=== PATIENT | male | born 1965 | race Two or more races ===

== ENCOUNTER 2025-04-17 08:03 | Emergency (ER) | payer OTHER ==
[~2025-04-17] VITALS: Ht 182.9 cm; Wt 119.7 kg
[~2025-04-17 08:03] MED LIST: AVAPRO300 MG PO; GRALISE600 MG; IRO-PLEX LIQUI120 ML PO; LEVOXYL25 MCG; METFORMIN HCL500 M3; NORFLEX100MG PO; TRAMADOL HCL50 MG PO; ZANAFLEX2 MG PO; ZIPSOR25 MG; ZOCOR20 MG PO
[2025-04-17] MEDS ORDERED: MORPHINE SULFATE 4 MG/ML CARTRIDGE IV STA (08:39)
[2025-04-17] MEDS ORDERED: 0.9 % SODIUM CHLORIDE 1,000 ML IV SCH (08:45)
[2025-04-17 09:15] LABS: BASO % 0.3 % (0.1-1.2); EOS # 0.00 (0.04-0.54); EOS % 0.0 % (0.7-7.0); LYMPH # 0.71 (1.18-3.74); LYMPH % 3.2 % (19.3-53.1); MEAN PLATELET VOLUME 11.20 fl (9.4-12.4); MONO # 1.09 (0.24-0.82); MONO % 5.0 % (4.7-12.5); NEUT # 19.84 (1.56-6.13); NEUT % 90.0 % (34.0-71.1); RED CELL DISTRIBUTION WIDTH 16.8 % (11.6-14.4)
[2025-04-17 09:37] LABS: INR 1.23
[2025-04-17 10:02] LABS: URINE APPEARANCE Turbid; URINE BILIRRUBIN Small (NEGATIVE); URINE BLOOD Negative; URINE COLOR Dark Yellow; URINE GLUCOSE Negative (NEGATIVE); URINE KETONE Trace (NEGATIVE); URINE LEUKOCYTE Moderate; URINE NITRATE Negative; URINE PROTEIN 30 (NEGATIVE); URINE UROBILINOGEN 1.0 E.U./dl
[2025-04-17 10:33] LABS: TYPE CELLS SQUAMOUS; URINE BACTERIA 1798.7 uL (0.0-1933); URINE CAST 2.93 uL (0.0-1.40); URINE EPITHELIAL CELLS 148.6 uL (0.0-38.8); URINE RBC 35.1 uL (0.0-20.8); URINE WBC 119.5 uL (0.0-23.2)
[2025-04-17 10:45] LABS: ALT/SGPT 43.0 U/L (12-78); AST/SGOT 73.0 U/L (15-37); BILIRUBIN TOTAL 1.63 mg/dL (0.3-1.2); BUN CREA RATIO 20.0 (7.0-25.0); CREATININE SERUM 1.32 mg/dL (0.70-1.30); GFR 55.9; GLOBULINA 5.3 G/DL (2.4-3.5); GLUCOSE FASTING 156.0 mg/dL (65-100); OSMOLALITY SERUM 273.0 MOSM/KG (275-295)
[2025-04-17] MEDS ORDERED: KETOROLAC TROMETHAMINE 60 MG VIAL IM ONE (13:54)
[2025-04-17] MEDS ORDERED: KETOROLAC TROMETHAMINE 60 MG VIAL IM STA (14:02)
== END 2025-04-17 14:05 | disposition expired ==
LOC: ER 08:03
PROVIDERS: Physician Assistant Medical
DX: C18.9 Malignant neoplasm of colon, unspecified (principal); R10.9 Unspecified abdominal pain; N39.0 Urinary tract infection, site not specified; I10 Essential (primary) hypertension; E03.8 Other specified hypothyroidism; E11.9 Type 2 diabetes mellitus without complications; Z79.84 Long term (current) use of oral hypoglycemic drugs

== ENCOUNTER 2025-05-01 10:31 | Inpatient (IN) | payer OTHER ==
[~2025-05-01] VITALS: Ht 182.9 cm; Wt 102.1 kg
[2025-05-01] MEDS ORDERED: PEPCID AC10 MG PO (10:53)
[2025-05-01] MEDS ORDERED: ORPHENADRINE CI25 GM (10:53)
[2025-05-01] MEDS ORDERED: OXYCONTIN10 M1 PO (10:54)
--- NOTE | 2025-05-01 11:05 | NUR ---
SE RECIBE PACIENTE ALERTA Y ORIENTADO QUIEN REFIERE ES PACIENTE DE CANCER DE COLON Y TIENE DOLOR. SE MIDEN S/V Y SE REALIZA EKG, EL MISMO SE LE PRESENTA A DRA AVENDANO. SE UBICA.
[2025-05-01] MEDS ORDERED: KETOROLAC TROMETHAMINE 30 MG VIAL IV ONE (11:30)
[2025-05-01] MEDS ORDERED: PANTOPRAZOLE SODIUM 40 MG/VIAL VIAL IV PUSH ONE (11:30)
[2025-05-01] MEDS ORDERED: PIPERACILLIN/TAZOBACTAM SODIUM 3.375 GM VIAL IV ONE ×3 (11:30→22:36)
[2025-05-01] MEDS ORDERED: 0.9 % SODIUM CHLORIDE 1,000 ML IV SCH (11:30)
--- NOTE | 2025-05-01 11:48 | NUR ---
SE ORIENTA A PACIENTE SOBRE TRATAMIENTO MEDICO, REFIERE ENTENDER. SE COLECTAN MUESTRAS DE LABORATORIO Y SE CANALIZA A PACIENTE BAJO MEDIDAS ASEPTICAS. SE ADMINISTRAN MEDICAMENTOS LASHAE ORDEN MEDICA. SE ENTREGA ENVASE PARA U/A. SE NOTIFICAN ESTUDIOS PENDIENTES. SE CONECTA PACIENTE A MONITOR CARDIACO Y OXIMETRIA DE PULSO CONTINUA.
[2025-05-01 12:39] LABS: COVID-19 AG NEGATIVE (NEGATIVE)
[2025-05-01 13:01] LABS: ERYTHROCYTE SEDIMENTATION RATE > 130 mm/hr (0-20)
[2025-05-01 13:02] LABS: BASO % 1.2 % (0.1-1.2); EOS # 0.01 (0.04-0.54); EOS % 0.3 % (0.7-7.0); LYMPH # 0.40 (1.18-3.74); LYMPH % 12.4 % (19.3-53.1); MONO # 0.41 (0.24-0.82); NEUT # 2.35 (1.56-6.13); NEUT % 73.1 % (34.0-71.1); RED CELL DISTRIBUTION WIDTH 16.8 % (11.6-14.4)
[2025-05-01 13:08] LABS: ALT/SGPT 34.0 U/L (12-78); AST/SGOT 18.0 U/L (15-37); BILIRUBIN TOTAL 2.0 mg/dL (0.3-1.2); BUN CREA RATIO 28.0 (7.0-25.0); CREATININE SERUM 2.05 mg/dL (0.70-1.30); GFR 33.64; GLOBULINA 4.9 G/DL (2.4-3.5); GLUCOSE FASTING 157.0 mg/dL (65-100); OSMOLALITY SERUM 280.0 MOSM/KG (275-295)
[2025-05-01 13:13] LABS: MONO % 12.7 % (4.7-12.5)
[2025-05-01 14:03] LABS: BAND MAN 10.0 %; LYMPHOCYTE MAN 14.0 %; MONOCYTE MAN 9.0 %; NEUTROPHILS MAN 64.0 %
[2025-05-01 19:08] LABS: URINE APPEARANCE Cloudy; URINE BILIRRUBIN Small (NEGATIVE); URINE BLOOD Negative; URINE COLOR Dark Yellow; URINE GLUCOSE Negative (NEGATIVE); URINE KETONE Trace (NEGATIVE); URINE LEUKOCYTE Trace; URINE NITRATE Negative; URINE PROTEIN Trace (NEGATIVE); URINE UROBILINOGEN 1.0 E.U./dl
[2025-05-01 19:09] LABS: URINE BACTERIA 448.7 uL (0.0-1933); URINE CAST 6.01 uL (0.0-1.40); URINE EPITHELIAL CELLS 39.3 uL (0.0-38.8); URINE RBC 19.0 uL (0.0-20.8); URINE WBC 6.4 uL (0.0-23.2)
--- NOTE | 2025-05-01 20:55 | NUR ---
SE ORIENTA A PACIENTE SOBRE ORDEN DE TRANSFUSION DE 2 UNIDADES FRACCIONADAS DE PRBC, REFIERE ENTENDER Y ACEPTAR. SE CORROBORAN DATOS DEMOGRAFICOS DE PACIENTE. PACIENTE FIRMA CONSENTIMIENTO DE TRANSFUSION (SE ADJUNTA A RECORD). SE COLECTAN TUBOS SIRENA, SE COMPLETA REQUISICION SANGUINEA Y SE LLEVA LA MISMA A LABORATORIO DE INSTITUCION (COPIA EN RECORD DE PACIENTE).
[2025-05-01] MEDS ORDERED: ONDANSETRON HCL 4 MG in 0.9 % SODIUM CHLORIDE 50 ML IV PRN (21:30)
[2025-05-01] MEDS ORDERED: ACETAMINOPHEN 325 MG TABLET PO PRN (21:30)
[2025-05-01] MEDS ORDERED: MORPHINE SULFATE 2 MG/ML SYRINGE IV PRN (22:00)
[2025-05-01] MEDS ORDERED: NOREPINEPHRINE BITARTRATE 8 MG in DEXTROSE 5 % IN WATER 250 ML IV SCH (22:15)
[2025-05-02] VITALS (23 sets, daily range): BP systolic 82–153; BP diastolic 52–81; O2SAT 94–100
[2025-05-02] MEDS ORDERED: PIPERACILLIN/TAZOBACTAM SODIUM 3.375 GM in 0.9 % SODIUM CHLORIDE 100 ML IV SCH
[2025-05-02] MEDS ORDERED: ACETAMINOPHEN 500 MG GEL..CAP PO PRN (08:30)
[2025-05-02] MEDS ORDERED: PANTOPRAZOLE SODIUM 40 MG/VIAL VIAL IV SCH (09:00)
[2025-05-02] MEDS ORDERED: INSULIN LISPRO 1,000 UNIT/10 ML UNITS SUBCUTANEO PRN (16:15)
[2025-05-02] MEDS ORDERED: DEXTROSE 5 % AND 0.9 % NACL 1,000 ML IV SCH (16:15)
[2025-05-03] VITALS (12 sets, daily range): BP systolic 97–121; BP diastolic 59–77; O2SAT 96–100
[2025-05-03 14:19] LABS: BASO % 0.2 % (0.1-1.2); EOS # 0.03 (0.04-0.54); EOS % 0.5 % (0.7-7.0); LYMPH # 0.98 (1.18-3.74); LYMPH % 17.0 % (19.3-53.1); MONO # 0.71 (0.24-0.82); NEUT # 3.59 (1.56-6.13); NEUT % 62.0 % (34.0-71.1); RED CELL DISTRIBUTION WIDTH 16.4 % (11.6-14.4)
[2025-05-03 14:41] LABS: MONO % 12.3 % (4.7-12.5)
[2025-05-03 15:17] LABS: BUN CREA RATIO 38.0 (7.0-25.0); CREATININE SERUM 0.98 mg/dL (0.70-1.30); GFR 78.83; GLUCOSE FASTING 140.0 mg/dL (65-100); OSMOLALITY SERUM 292.0 MOSM/KG (275-295)
[2025-05-03 16:13] LABS: BAND MAN 2.0 %; LYMPHOCYTE MAN 18.0 %; METAMYELOCYTE 2.0 %; MONOCYTE MAN 13.0 %; MYELOCYTE 2.0 %
[2025-05-03 16:14] LABS: NEUTROPHILS MAN 61.0 %
[2025-05-03 16:30] LABS: INR 1.3
[2025-05-03 17:07] LABS: BILIRUBIN TOTAL 1.21 mg/dL (0.3-1.2); BILIRUBIN,CONJUGATED 0.92 mg/dL (0.0-0.2); LDH 105.0 U/L (87-241)
[2025-05-04 02:20] VITALS: BP 119/83; O2SAT 97
[2025-05-04 04:00] VITALS: BP 124/90; O2SAT 99
[2025-05-04 07:04] VITALS: BP 129/91; O2SAT 100
[2025-05-04] MEDS ORDERED: CHLORHEXIDINE GLUCONATE 120 ML BOTTLE TOP ONE (09:04)
[2025-05-04 09:15] LABS: BASO % 0.2 % (0.1-1.2); EOS # 0.03 (0.04-0.54); EOS % 0.5 % (0.7-7.0); LYMPH # 1.07 (1.18-3.74); LYMPH % 17.3 % (19.3-53.1); MEAN PLATELET VOLUME 12.30 fl (9.4-12.4); MONO # 0.73 (0.24-0.82); MONO % 11.8 % (4.7-12.5); NEUT # 3.67 (1.56-6.13); NEUT % 59.2 % (34.0-71.1); RED CELL DISTRIBUTION WIDTH 16.3 % (11.6-14.4)
[2025-05-04] MEDS ORDERED: DIATRIZOATE MEGLUMINE, SODIUM 30 ML BOTTLE PO NR (09:15)
[2025-05-04 09:57] LABS: BAND MAN 11.0 %; EOSINOPHIL MAN 2.0 %; LYMPHOCYTE MAN 24.0 %; METAMYELOCYTE 4.0 %; MONOCYTE MAN 9.0 %; NEUTROPHILS MAN 50.0 %
[2025-05-04 12:20] VITALS: BP 121/88; O2SAT 97
[2025-05-04] MEDS ORDERED: HALOPERIDOL LACTATE 5 MG/ML AMPUL ONE (13:10)
[2025-05-04] MEDS ORDERED: HALOPERIDOL LACTATE 5 MG/ML AMPUL IM NR (14:00)
[2025-05-04] MEDS ORDERED: fentaNYL CITRATE 50 MCG/ML AMPUL IV PUSH ONE (18:45)
[2025-05-04 20:45] VITALS: BP 124/85; O2SAT 100
[2025-05-04 23:23] VITALS: BP 105/78; O2SAT 99
[2025-05-05 04:22] VITALS: O2SAT 95
[2025-05-05 08:00] VITALS: BP 129/87; O2SAT 97
[2025-05-05] MEDS ORDERED: MORPHINE SULFATE 4 MG/ML CARTRIDGE IV PRN (11:00)
[2025-05-05 11:58] VITALS: BP 120/93; O2SAT 98
[2025-05-05 15:27] LABS: BUN CREA RATIO 23.0 (7.0-25.0); CHOL HDL RATIO 4.6 (0-5.0); CREATININE SERUM 0.93 mg/dL (0.70-1.30); GFR 83.74; GLUCOSE FASTING 116.0 mg/dL (65-100); HDL 19.0 mg/dl (40-60); LDL 44.0 mg/dl (0-130); OSMOLALITY SERUM 296.0 MOSM/KG (275-295); VLDL 24.0 (0-39)
[2025-05-05 15:33] VITALS: BP 126/82; O2SAT 98
[2025-05-05] MEDS ORDERED: AA 5 %/CALCIUM/LYTES/DEXT 20 % 2,000 ML CENTRAL SCH (17:00)
[2025-05-05] MEDS ORDERED: FAT EMULSIONS 250 ML IV SCH (21:00)
[2025-05-05 21:41] VITALS: BP 127/93; O2SAT 98
[2025-05-05 23:18] VITALS: BP 116/81; O2SAT 97
[2025-05-06 04:01] VITALS: BP 148/86; O2SAT 100
[2025-05-06 06:57] VITALS: BP 127/91; O2SAT 97
[2025-05-06] MEDS ORDERED: MEROPENEM 500 MG/VIAL VIAL IV STA (08:20)
[2025-05-06] MEDS ORDERED: MEROPENEM 500 MG/VIAL VIAL IV SCH (08:21)
[2025-05-06 12:02] VITALS: BP 120/88; O2SAT 99
[2025-05-06 15:30] VITALS: BP 131/87; O2SAT 98
[2025-05-07 01:59] VITALS: BP 146/90; O2SAT 97
[2025-05-07 06:29] LABS: BASO % 0.4 % (0.1-1.2); EOS # 0.01 (0.04-0.54); EOS % 0.1 % (0.7-7.0); LYMPH # 1.22 (1.18-3.74); LYMPH % 16.9 % (19.3-53.1); MEAN PLATELET VOLUME 10.90 fl (9.4-12.4); MONO # 0.61 (0.24-0.82); MONO % 8.4 % (4.7-12.5); NEUT # 4.42 (1.56-6.13); NEUT % 61.3 % (34.0-71.1); RED CELL DISTRIBUTION WIDTH 17.4 % (11.6-14.4)
[2025-05-07 06:54] LABS: ALT/SGPT 21.0 U/L (12-78); AST/SGOT 27.0 U/L (15-37); BILIRUBIN TOTAL 0.6 mg/dL (0.3-1.2); BUN CREA RATIO 18.0 (7.0-25.0); CREATININE SERUM 0.83 mg/dL (0.70-1.30); GFR 95.49; GLOBULINA 4.2 G/DL (2.4-3.5); GLUCOSE FASTING 194.0 mg/dL (65-100); OSMOLALITY SERUM 297.0 MOSM/KG (275-295)
[2025-05-07 08:57] LABS: BAND MAN 5.0 %; LYMPHOCYTE MAN 15.0 %; MONOCYTE MAN 4.0 %; NEUTROPHILS MAN 66.0 %
[2025-05-07 08:58] LABS: METAMYELOCYTE 7.0 %
[2025-05-07] MEDS ORDERED: DEXTROSE 5 %-0.45 % SOD CHLORD 1,000 ML IV SCH (09:00)
[2025-05-07 09:33] VITALS: BP 149/87; O2SAT 96
[2025-05-07 17:59] VITALS: BP 135/80
[2025-05-08 03:30] VITALS: BP 137/79; O2SAT 97
[2025-05-08] MEDS ORDERED: ONDANSETRON HCL 4 MG in 0.9 % SODIUM CHLORIDE 50 ML IV PRN (05:45)
[2025-05-08] MEDS ORDERED: MORPHINE SULFATE 4 MG/ML CARTRIDGE IV PRN (05:45)
[2025-05-08 08:30] VITALS: BP 144/97; O2SAT 95
[2025-05-08 18:46] VITALS: BP 149/96
[2025-05-09 04:29] VITALS: BP 135/84; O2SAT 97
[2025-05-09 08:13] LABS: BASO % 0.4 % (0.1-1.2); EOS # 0.01 (0.04-0.54); EOS % 0.1 % (0.7-7.0); LYMPH # 1.43 (1.18-3.74); LYMPH % 17.7 % (19.3-53.1); MEAN PLATELET VOLUME 11.70 fl (9.4-12.4); MONO # 0.60 (0.24-0.82); MONO % 7.4 % (4.7-12.5); NEUT # 5.79 (1.56-6.13); NEUT % 71.6 % (34.0-71.1); RED CELL DISTRIBUTION WIDTH 17.9 % (11.6-14.4)
[2025-05-09 08:51] VITALS: BP 135/85; O2SAT 95
[2025-05-09 08:51] LABS: ALT/SGPT 23.0 U/L (12-78); AST/SGOT 43.0 U/L (15-37); BILIRUBIN TOTAL 0.84 mg/dL (0.3-1.2); BUN CREA RATIO 12.0 (7.0-25.0); CREATININE SERUM 1.07 mg/dL (0.70-1.30); GFR 71.23; GLOBULINA 4.2 G/DL (2.4-3.5); GLUCOSE FASTING 110.0 mg/dL (65-100); OSMOLALITY SERUM 286.0 MOSM/KG (275-295)
[2025-05-09 18:05] VITALS: BP 144/95
[2025-05-10 02:50] VITALS: BP 132/88; O2SAT 96
[2025-05-10] MEDS ORDERED: DIATRIZOATE MEGLUMINE, SODIUM 30 ML BOTTLE PO NR (09:00)
[2025-05-10 09:11] VITALS: BP 136/99; O2SAT 97
[2025-05-10] MEDS ORDERED: MORPHINE SULFATE 4 MG/ML CARTRIDGE IV PRN (15:00)
[2025-05-10 20:50] VITALS: BP 152/102; O2SAT 98
[2025-05-11 01:03] VITALS: BP 135/90; O2SAT 98
[2025-05-11 10:05] VITALS: BP 128/78; O2SAT 96
[2025-05-11 18:56] VITALS: BP 143/85; O2SAT 97
[2025-05-12 03:27] VITALS: BP 113/72; O2SAT 95
[2025-05-12 06:30] LABS: BASO % 0.6 % (0.1-1.2); EOS # 0.01 (0.04-0.54); EOS % 0.1 % (0.7-7.0); LYMPH # 1.50 (1.18-3.74); LYMPH % 20.7 % (19.3-53.1); MEAN PLATELET VOLUME 11.60 fl (9.4-12.4); MONO # 0.60 (0.24-0.82); MONO % 8.3 % (4.7-12.5); NEUT # 5.05 (1.56-6.13); NEUT % 69.6 % (34.0-71.1); RED CELL DISTRIBUTION WIDTH 17.7 % (11.6-14.4)
[2025-05-12 06:46] LABS: ALT/SGPT 20.0 U/L (12-78); AST/SGOT 45.0 U/L (15-37); BILIRUBIN TOTAL 0.92 mg/dL (0.3-1.2); BUN CREA RATIO 10.0 (7.0-25.0); CREATININE SERUM 1.18 mg/dL (0.70-1.30); GFR 63.63; GLOBULINA 4.3 G/DL (2.4-3.5); GLUCOSE FASTING 79.0 mg/dL (65-100); OSMOLALITY SERUM 280.0 MOSM/KG (275-295)
[2025-05-12] MEDS ORDERED: FAMOTIDINE/PF 20 MG/2 ML VIAL IV STA (07:33)
[2025-05-12 10:40] VITALS: BP 117/83; O2SAT 98
[2025-05-12 20:10] VITALS: BP 126/85; O2SAT 96
[2025-05-12] MEDS ORDERED: FAMOTIDINE/PF 20 MG/2 ML VIAL IV SCH (21:00)
[2025-05-13 03:14] VITALS: BP 134/89; O2SAT 96
[2025-05-13 10:10] VITALS: BP 136/70; O2SAT 99
[2025-05-13 17:27] VITALS: BP 123/79; O2SAT 98
[2025-05-14 02:57] VITALS: BP 108/72; O2SAT 96
[2025-05-14 05:53] LABS: BASO % 1.0 % (0.1-1.2); EOS # 0.00 (0.04-0.54); EOS % 0.0 % (0.7-7.0); LYMPH # 1.46 (1.18-3.74); LYMPH % 28.7 % (19.3-53.1); MEAN PLATELET VOLUME 10.50 fl (9.4-12.4); MONO # 0.51 (0.24-0.82); MONO % 10.0 % (4.7-12.5); NEUT # 3.04 (1.56-6.13); NEUT % 59.9 % (34.0-71.1); RED CELL DISTRIBUTION WIDTH 17.4 % (11.6-14.4)
[2025-05-14 06:40] LABS: ALT/SGPT 25.0 U/L (12-78); AST/SGOT 53.0 U/L (15-37); BILIRUBIN TOTAL 0.61 mg/dL (0.3-1.2); BUN CREA RATIO 10.0 (7.0-25.0); CREATININE SERUM 0.82 mg/dL (0.70-1.30); GFR 96.84; GLOBULINA 4.2 G/DL (2.4-3.5); GLUCOSE FASTING 95.0 mg/dL (65-100); OSMOLALITY SERUM 283.0 MOSM/KG (275-295)
[2025-05-14 08:26] VITALS: BP 127/76; O2SAT 98
[2025-05-14] MEDS ORDERED: POTASSIUM BICARBONATE/CIT AC 25 MEQ TABLET.EFF PO SCH (09:00)
[2025-05-14 20:21] VITALS: BP 130/80; O2SAT 96
[2025-05-15 03:20] VITALS: BP 117/75; O2SAT 95
[2025-05-15 08:59] VITALS: BP 118/80; O2SAT 98
[2025-05-15 16:17] LABS: BASO % 0.9 % (0.1-1.2); EOS # 0.00 (0.04-0.54); EOS % 0.0 % (0.7-7.0); LYMPH # 1.08 (1.18-3.74); LYMPH % 20.0 % (19.3-53.1); MEAN PLATELET VOLUME 11.90 fl (9.4-12.4); MONO # 0.40 (0.24-0.82); MONO % 7.4 % (4.7-12.5); NEUT # 3.84 (1.56-6.13); NEUT % 71.3 % (34.0-71.1); RED CELL DISTRIBUTION WIDTH 18.2 % (11.6-14.4)
[2025-05-15 20:20] VITALS: BP 135/89
[2025-05-16 02:09] VITALS: BP 129/89; O2SAT 96
[2025-05-16] MEDS ORDERED: MORPHINE SULFATE 4 MG/ML CARTRIDGE IV PRN (04:00)
[2025-05-16] MEDS ORDERED: DIATRIZOATE MEGLUMINE, SODIUM 30 ML BOTTLE PO STA (08:12)
[2025-05-16 09:15] VITALS: BP 112/71; O2SAT 97
[2025-05-16] MEDS ORDERED: ORPHENADRINE CITRATE 30 MG/ML AMPUL IV PRN (09:45)
[2025-05-16 11:15] LABS: BASO % 1.1 % (0.1-1.2); EOS # 0.00 (0.04-0.54); EOS % 0.0 % (0.7-7.0); LYMPH # 1.45 (1.18-3.74); LYMPH % 23.6 % (19.3-53.1); MEAN PLATELET VOLUME 10.70 fl (9.4-12.4); MONO # 0.45 (0.24-0.82); MONO % 7.3 % (4.7-12.5); NEUT # 4.15 (1.56-6.13); NEUT % 67.5 % (34.0-71.1); RED CELL DISTRIBUTION WIDTH 17.9 % (11.6-14.4)
[2025-05-16 17:26] VITALS: BP 136/94; O2SAT 20
[2025-05-17 01:51] VITALS: BP 135/85; O2SAT 97
[2025-05-17 07:25] LABS: BUN CREA RATIO 9.0 (7.0-25.0); CREATININE SERUM 0.64 mg/dL (0.70-1.30); GFR 128.9; GLUCOSE FASTING 78.0 mg/dL (65-100); OSMOLALITY SERUM 281.0 MOSM/KG (275-295)
[2025-05-17 10:10] VITALS: BP 128/90; O2SAT 97
[2025-05-17 17:08] VITALS: BP 135/86; O2SAT 100
[2025-05-18 01:40] VITALS: BP 101/66; O2SAT 96
[2025-05-18 09:40] VITALS: BP 127/89; O2SAT 98
[2025-05-18 21:02] VITALS: BP 132/85; O2SAT 97
[2025-05-19 02:59] VITALS: BP 119/76; O2SAT 96
[2025-05-19 10:26] VITALS: BP 136/90; O2SAT 96
[2025-05-19] MEDS ORDERED: CLONAZEPAM 0.5 MG TABLET PO SCH (17:00)
[2025-05-19 17:56] VITALS: BP 140/85; O2SAT 98
[2025-05-20 02:40] VITALS: BP 97/69; O2SAT 97
[2025-05-20 11:00] VITALS: BP 141/101; O2SAT 97
[2025-05-20 13:10] LABS: BASO % 0.9 % (0.1-1.2); EOS # 0.02 (0.04-0.54); EOS % 0.3 % (0.7-7.0); LYMPH # 1.32 (1.18-3.74); LYMPH % 19.9 % (19.3-53.1); MEAN PLATELET VOLUME 11.40 fl (9.4-12.4); MONO # 0.47 (0.24-0.82); MONO % 7.1 % (4.7-12.5); NEUT # 4.73 (1.56-6.13); NEUT % 71.5 % (34.0-71.1); RED CELL DISTRIBUTION WIDTH 18.1 % (11.6-14.4)
[2025-05-20 13:59] LABS: ALT/SGPT 65.0 U/L (12-78); AST/SGOT 107.0 U/L (15-37); BILIRUBIN TOTAL 1.01 mg/dL (0.3-1.2); BUN CREA RATIO 13.0 (7.0-25.0); CREATININE SERUM 0.78 mg/dL (0.70-1.30); GFR 102.59; GLOBULINA 4.9 G/DL (2.4-3.5); GLUCOSE FASTING 110.0 mg/dL (65-100); OSMOLALITY SERUM 285.0 MOSM/KG (275-295)
[2025-05-20 17:27] VITALS: BP 115/82; O2SAT 96
[2025-05-21 02:09] VITALS: BP 109/70; O2SAT 96
[2025-05-21 09:28] VITALS: BP 102/83; O2SAT 97
[2025-05-21 19:40] VITALS: BP 130/80; O2SAT 97
[2025-05-22 02:58] VITALS: BP 105/64; O2SAT 98
[2025-05-22 09:18] VITALS: BP 108/68; O2SAT 98
[2025-05-22 17:45] VITALS: BP 151/97; O2SAT 96
[2025-05-23 01:29] VITALS: BP 129/88; O2SAT 97
[2025-05-23 08:56] VITALS: BP 119/66; O2SAT 98
[2025-05-23 18:52] VITALS: BP 143/90; O2SAT 96
[2025-05-24 03:51] VITALS: BP 105/66; O2SAT 97
[2025-05-24 06:20] LABS: BASO % 0.9 % (0.1-1.2); EOS # 0.11 (0.04-0.54); EOS % 2.5 % (0.7-7.0); LYMPH # 1.35 (1.18-3.74); LYMPH % 30.8 % (19.3-53.1); MEAN PLATELET VOLUME 10.90 fl (9.4-12.4); MONO # 0.44 (0.24-0.82); MONO % 10.0 % (4.7-12.5); NEUT # 2.42 (1.56-6.13); NEUT % 55.3 % (34.0-71.1); RED CELL DISTRIBUTION WIDTH 18.0 % (11.6-14.4)
[2025-05-24 06:47] LABS: BUN CREA RATIO 12.0 (7.0-25.0); CREATININE SERUM 0.74 mg/dL (0.70-1.30); GFR 109.02; GLUCOSE FASTING 89.0 mg/dL (65-100); OSMOLALITY SERUM 287.0 MOSM/KG (275-295)
[2025-05-24 10:07] VITALS: BP 143/84; O2SAT 97
[2025-05-24 17:55] VITALS: BP 147/88; O2SAT 97
[2025-05-25 03:44] VITALS: BP 110/65; O2SAT 97
[2025-05-25 06:19] LABS: BASO % 1.0 % (0.1-1.2); EOS # 0.14 (0.04-0.54); EOS % 2.9 % (0.7-7.0); LYMPH # 1.45 (1.18-3.74); LYMPH % 30.4 % (19.3-53.1); MEAN PLATELET VOLUME 11.40 fl (9.4-12.4); MONO # 0.43 (0.24-0.82); MONO % 9.0 % (4.7-12.5); NEUT # 2.68 (1.56-6.13); NEUT % 56.3 % (34.0-71.1); RED CELL DISTRIBUTION WIDTH 17.5 % (11.6-14.4)
[2025-05-25 09:49] VITALS: BP 143/96; O2SAT 97
[2025-05-25 17:44] VITALS: BP 124/75
[2025-05-26 03:13] VITALS: BP 106/66; O2SAT 97
[2025-05-26 06:20] LABS: BASO % 1.0 % (0.1-1.2); EOS # 0.17 (0.04-0.54); EOS % 3.5 % (0.7-7.0); LYMPH # 1.34 (1.18-3.74); LYMPH % 27.3 % (19.3-53.1); MEAN PLATELET VOLUME 11.60 fl (9.4-12.4); MONO # 0.38 (0.24-0.82); MONO % 7.8 % (4.7-12.5); NEUT # 2.95 (1.56-6.13); NEUT % 60.2 % (34.0-71.1); RED CELL DISTRIBUTION WIDTH 17.8 % (11.6-14.4)
[2025-05-26 06:43] LABS: ALT/SGPT 65.0 U/L (12-78); AST/SGOT 96.0 U/L (15-37); BILIRUBIN TOTAL 0.75 mg/dL (0.3-1.2); BUN CREA RATIO 16.0 (7.0-25.0); CREATININE SERUM 0.67 mg/dL (0.70-1.30); GFR 122.26; GLOBULINA 4.1 G/DL (2.4-3.5); GLUCOSE FASTING 86.0 mg/dL (65-100); OSMOLALITY SERUM 286.0 MOSM/KG (275-295)
[2025-05-26 08:40] VITALS: BP 109/67; O2SAT 96
[2025-05-26 18:53] VITALS: BP 151/85; O2SAT 100
[2025-05-27 01:17] VITALS: BP 106/67; O2SAT 97
[2025-05-27 09:06] VITALS: BP 112/72; O2SAT 96
[2025-05-27] MEDS ORDERED: DIATRIZOATE MEGLUMINE, SODIUM 30 ML BOTTLE PO NR (11:00)
[2025-05-27] MEDS ORDERED: MEROPENEM 500 MG/VIAL VIAL IV SCH (12:00)
[2025-05-27 18:00] VITALS: BP 152/100; O2SAT 98
[2025-05-28 01:14] VITALS: BP 112/66; O2SAT 99
[2025-05-28 06:33] LABS: BASO % 0.8 % (0.1-1.2); EOS # 0.11 (0.04-0.54); EOS % 2.8 % (0.7-7.0); LYMPH # 1.11 (1.18-3.74); LYMPH % 28.2 % (19.3-53.1); MEAN PLATELET VOLUME 10.90 fl (9.4-12.4); MONO # 0.39 (0.24-0.82); MONO % 9.9 % (4.7-12.5); NEUT # 2.28 (1.56-6.13); NEUT % 58.0 % (34.0-71.1); RED CELL DISTRIBUTION WIDTH 18.2 % (11.6-14.4)
[2025-05-28 09:27] VITALS: BP 132/87; O2SAT 99
[2025-05-28 17:52] VITALS: BP 128/73
[2025-05-29 03:26] VITALS: BP 105/67; O2SAT 97
[2025-05-29 08:58] VITALS: BP 111/69; O2SAT 98
[2025-05-29 18:25] VITALS: BP 120/78
[2025-05-30 02:44] VITALS: BP 108/69; O2SAT 97
[2025-05-30 08:49] VITALS: BP 128/83; O2SAT 97
[2025-05-30 18:11] VITALS: BP 131/83
[2025-05-31 02:12] VITALS: BP 102/62; O2SAT 96
[2025-05-31 08:57] VITALS: BP 136/94; O2SAT 98
[2025-05-31 21:10] VITALS: BP 134/80
[2025-06-01 03:49] VITALS: BP 117/74; O2SAT 98
[2025-06-01 08:00] VITALS: BP 150/90; O2SAT 95
[2025-06-01 19:06] VITALS: BP 138/88; O2SAT 97
[2025-06-01 20:49] LABS: BASO % 0.8 % (0.1-1.2); EOS # 0.14 (0.04-0.54); EOS % 2.6 % (0.7-7.0); LYMPH # 1.15 (1.18-3.74); LYMPH % 21.6 % (19.3-53.1); MEAN PLATELET VOLUME 10.40 fl (9.4-12.4); MONO # 0.36 (0.24-0.82); MONO % 6.8 % (4.7-12.5); NEUT # 3.63 (1.56-6.13); NEUT % 68.0 % (34.0-71.1); RED CELL DISTRIBUTION WIDTH 17.2 % (11.6-14.4)
[2025-06-01] MEDS ORDERED: CLOTRIMAZOLE 30 GM TUBE TOP SCH (21:37)
[2025-06-02 02:30] VITALS: BP 120/72; O2SAT 97
[2025-06-02 08:00] VITALS: BP 146/83; O2SAT 96
[2025-06-02 18:02] VITALS: BP 146/84
[2025-06-02 18:29] VITALS: BP 137/82
[2025-06-03 02:54] VITALS: BP 129/78; O2SAT 95
[2025-06-03] MEDS ORDERED: IPRATROPIUM BROMIDE 0.5 MG/2.5 ML AMPUL.NEB IH SCH (09:00)
[2025-06-03] MEDS ORDERED: GUAIFENESIN 200 MG/10 ML BLIST.PACK PO SCH (09:00)
[2025-06-03 09:07] VITALS: BP 156/111; O2SAT 97
[2025-06-03 11:44] LABS: BASO % 0.4 % (0.1-1.2); EOS # 0.01 (0.04-0.54); EOS % 0.1 % (0.7-7.0); LYMPH # 0.92 (1.18-3.74); LYMPH % 13.1 % (19.3-53.1); MEAN PLATELET VOLUME 10.80 fl (9.4-12.4); MONO # 0.44 (0.24-0.82); MONO % 6.3 % (4.7-12.5); NEUT # 5.60 (1.56-6.13); NEUT % 79.8 % (34.0-71.1); RED CELL DISTRIBUTION WIDTH 17.2 % (11.6-14.4)
[2025-06-03 12:19] LABS: BAND MAN 1.0 %; LYMPHOCYTE MAN 7.0 %; MONOCYTE MAN 2.0 %; NEUTROPHILS MAN 86.0 %
[2025-06-03 12:28] LABS: ALT/SGPT 66.0 U/L (12-78); AST/SGOT 96.0 U/L (15-37); BILIRUBIN TOTAL 2.36 mg/dL (0.3-1.2); BUN CREA RATIO 12.0 (7.0-25.0); CREATININE SERUM 0.95 mg/dL (0.70-1.30); GFR 81.71; GLOBULINA 5.6 G/DL (2.4-3.5); GLUCOSE FASTING 136.0 mg/dL (65-100); OSMOLALITY SERUM 275.0 MOSM/KG (275-295)
[2025-06-03 12:45] LABS: COVID-19 AG NEGATIVE (NEGATIVE)
[2025-06-03 18:20] VITALS: BP 133/82
[2025-06-04 02:43] VITALS: BP 114/71; O2SAT 96
[2025-06-04 08:51] VITALS: BP 146/100; O2SAT 96
[2025-06-04 18:55] VITALS: BP 150/85; O2SAT 97
[2025-06-05 02:44] VITALS: BP 137/86; O2SAT 100
[2025-06-05 09:33] VITALS: BP 120/77; O2SAT 96
[2025-06-05 17:55] VITALS: BP 147/92; O2SAT 97
[2025-06-06 02:21] VITALS: BP 139/88; O2SAT 97
[2025-06-06 09:27] VITALS: BP 122/72; O2SAT 96
[2025-06-06 18:20] VITALS: BP 153/85; O2SAT 96
[2025-06-07 03:23] VITALS: BP 135/85; O2SAT 97
[2025-06-07 11:27] VITALS: BP 142/96; O2SAT 97
[2025-06-07 14:54] LABS: ERYTHROCYTE SEDIMENTATION RATE 53 mm/hr (0-20)
[2025-06-07 14:58] LABS: BASO % 0.3 % (0.1-1.2); EOS # 0.13 (0.04-0.54); EOS % 2.1 % (0.7-7.0); LYMPH # 1.35 (1.18-3.74); LYMPH % 21.8 % (19.3-53.1); MEAN PLATELET VOLUME 10.50 fl (9.4-12.4); MONO # 0.53 (0.24-0.82); MONO % 8.6 % (4.7-12.5); NEUT # 4.14 (1.56-6.13); NEUT % 66.9 % (34.0-71.1); RED CELL DISTRIBUTION WIDTH 16.5 % (11.6-14.4)
[2025-06-07 15:09] LABS: ALT/SGPT 42.0 U/L (12-78); AST/SGOT 59.0 U/L (15-37); BILIRUBIN TOTAL 1.08 mg/dL (0.3-1.2); BUN CREA RATIO 15.0 (7.0-25.0); CREATININE SERUM 0.78 mg/dL (0.70-1.30); GFR 102.59; GLOBULINA 4.7 G/DL (2.4-3.5); GLUCOSE FASTING 95.0 mg/dL (65-100); OSMOLALITY SERUM 283.0 MOSM/KG (275-295)
[2025-06-07 16:22] VITALS: BP 135/84; O2SAT 96
[2025-06-08 00:53] VITALS: BP 132/79; O2SAT 97
[2025-06-08 09:11] VITALS: BP 137/83; O2SAT 96
[2025-06-08 18:13] VITALS: BP 156/85; O2SAT 98
[2025-06-09 03:17] VITALS: BP 117/74; O2SAT 97
[2025-06-09 09:30] VITALS: BP 138/84; O2SAT 96
[2025-06-09 18:08] VITALS: BP 144/96
[2025-06-10 03:12] VITALS: BP 137/84; O2SAT 98
[2025-06-10 09:22] VITALS: BP 150/90; O2SAT 96
== END 2025-06-10 11:54 | disposition home or self-care (01) | DRG 808 ==
LOC: ER 10:31 → SURH 21:21 → ICU-2 21:21 → ICU 21:21 → ICU-2 23:54 → ICU 05-04 02:02 → MEDJ 05-06 18:14
PROVIDERS: General Practice; Internal Medicine; Internal Medicine Infectious Disease; Internal Medicine Nephrology; Radiology Vascular & Interventional Radiology; Student in an Organized Health Care Education/Training Program; ADMIT Internal Medicine; ATTEND Internal Medicine
PROC: 8E0ZXY6 Isolation (ICD-10-PCS; principal; 2025-05-01)
PROC: BW21ZZZ Computerized Tomography (CT Scan) of Abdomen and Pelvis (ICD-10-PCS; 2025-05-01)
PROC: 4A033R1 Measurement of Arterial Saturation, Peripheral, Percutaneous Approach (ICD-10-PCS; 2025-05-01)
PROC: 30233N1 Transfusion of Nonautologous Red Blood Cells into Peripheral Vein, Percutaneous Approach (ICD-10-PCS; 2025-05-02)
PROC: 05HC33Z Insertion of Infusion Device into Left Basilic Vein, Percutaneous Approach (ICD-10-PCS; 2025-05-03)
PROC: BW21YZZ Computerized Tomography (CT Scan) of Abdomen and Pelvis using Other Contrast (ICD-10-PCS; 2025-05-04)
PROC: 0W9G3ZZ Drainage of Peritoneal Cavity, Percutaneous Approach (ICD-10-PCS; 2025-05-04)
PROC: BW21ZZZ Computerized Tomography (CT Scan) of Abdomen and Pelvis (ICD-10-PCS; 2025-05-10)
PROC: BW21YZZ Computerized Tomography (CT Scan) of Abdomen and Pelvis using Other Contrast (ICD-10-PCS; 2025-05-10)
PROC: BW21YZZ Computerized Tomography (CT Scan) of Abdomen and Pelvis using Other Contrast (ICD-10-PCS; 2025-05-15)
PROC: BW21YZZ Computerized Tomography (CT Scan) of Abdomen and Pelvis using Other Contrast (ICD-10-PCS; 2025-05-26)
PROC: 3E0F7GC Introduction of Other Therapeutic Substance into Respiratory Tract, Via Natural or Artificial Opening (ICD-10-PCS; 2025-06-03)
DX: D61.810 Antineoplastic chemotherapy induced pancytopenia (principal); A41.9 Sepsis, unspecified organism; K35.33 Acute appendicitis with perforation, localized peritonitis, and gangrene, with abscess; N17.9 Acute kidney failure, unspecified; C18.9 Malignant neoplasm of colon, unspecified; E86.0 Dehydration; B96.20 Unspecified Escherichia coli [E. coli] as the cause of diseases classified elsewhere; B95.4 Other streptococcus as the cause of diseases classified elsewhere; B96.89 Other specified bacterial agents as the cause of diseases classified elsewhere; D63.0 Anemia in neoplastic disease